=== PATIENT | male | born 1945 | race Caucasian/White ===

== ENCOUNTER 2018-05-22 02:45 | Inpatient (IN) | payer OTHER ==
[~2018-05-22] VITALS: Ht 182.9 cm; Wt 75.3 kg
[2018-05-22 04:24] LABS: BASOPHILS ABSOLUTE AUTO 0.03 K/mm3 (0.00-0.23); BASOPHILS PERCENT AUTO 0 % (0-2); EOSINOPHILS ABSOLUTE AUTO 0.09 K/mm3 (0.00-0.68); EOSINOPHILS PERCENT AUTO 1 % (0-6); Hemoglobin 15.1 g/dL (13.5-17.5); IMMATURE GRAN ABSOLUTE AUTO 0.04 K/mm3 (0.00-0.10); IMMATURE GRAN PERCENT AUTO 0 % (0-1); LYMPHOCYTES PERCENT AUTO 20 % (21-46); MONOCYTES ABSOLUTE AUTO 0.71 K/mm3 (0.16-1.47); MONOCYTES PERCENT AUTO 8 % (4-13); Mean Corpuscular HGB 28.5 pg (26.0-34.0); Mean Corpuscular HGB Conc 32.1 g/dL (31.5-36.5); Mean Corpuscular Volume 89 fL (80-100); Mean Platelet Volume 11.6 fL (9.1-12.4); NEUTROPHILS PERCENT AUTO 70 % (41-73); Platelet Count 182 K/mm3 (150-400); RDW Standard Deviation 48.9 fL (35.1-46.3); White Blood Cell Count 9.37 K/mm3 (4.00-11.30)
[2018-05-22 05:08] LABS: Alanine Aminotransfer (ALT/SGP 49 U/L (12-78); Albumin, Blood 3.5 g/dL (3.4-5.0); Albumin/Globulin Ratio 0.9 (0.8-1.8); Alk Phos 68 U/L (50-136); Anion Gap 10 mmol/L (6-16); Aspartate Aminotrans (AST/SGOT 34 U/L (12-37); Blood Urea Nitrogen 26 mg/dL (8-24); Bun/Creatinine Ratio 26.2 (12.0-20.0); CO2, Blood 22 mmol/L (21-32); Chloride, Blood 110 mmol/L (98-108); Creatinine, Blood 0.99 mg/dL (0.60-1.20); Globulin, Blood 3.7 g/dL (2.2-4.0); Glomerular Filtration Rate >60 (60-); Glucose, Blood 105 mg/dL (70-99); Sodium, Blood 142 mmol/L (136-145); Total Protein, Blood 7.2 g/dL (6.4-8.2); Troponin I 0.049 ng/mL (0.000-0.040)
[2018-05-22 09:59] LABS: International Normalized Ratio 1.13; Prothrombin Time Results 11.6 Sec (9.7-11.5)
[2018-05-22 10:04] LABS: Troponin I 0.052 ng/mL (0.000-0.040)
[2018-05-22 10:06] LABS: Thyroid Stimulating Hormone 3.02 uIU/mL (0.360-4.800)
[2018-05-22] MEDS ORDERED: Omega 3 1,0001 EACH PO (10:16)
[2018-05-22] MEDS ORDERED: L-Lysine500 M1 PO (10:18)
[2018-05-22] MEDS ORDERED: ASCO500 PO (10:19)
[2018-05-22] MEDS ORDERED: MULTI VITAMIN1 EACH PO (10:22)
[2018-05-22 19:24] LABS: Magnesium, Blood 2.2 mg/dL (1.6-2.4)
[2018-05-22 19:25] LABS: Potassium, Blood 4.5 mmol/L (3.5-5.5)
[2018-05-23 05:30] LABS: Anion Gap 9 mmol/L (6-16); Blood Urea Nitrogen 27 mg/dL (8-24); Bun/Creatinine Ratio 23.9 (12.0-20.0); CO2, Blood 27 mmol/L (21-32); Calcium, Blood 8.4 mg/dL (8.5-10.1); Chloride, Blood 106 mmol/L (98-108); Creatinine, Blood 1.13 mg/dL (0.60-1.20); Glomerular Filtration Rate >60 (60-); Glucose, Blood 92 mg/dL (70-99); Magnesium, Blood 2.4 mg/dL (1.6-2.4); Potassium, Blood 3.8 mmol/L (3.5-5.5); Sodium, Blood 142 mmol/L (136-145)
== END 2018-05-23 17:20 | disposition short-term general hospital (02) | DRG 286 ==
LOC: ER 02:45 → ICUE 02:50 → ICUW 02:50 → ICUE 02:50 → ER 06:36 → ICUW 06:36 → ICUE 08:14 → ICUW 08:14 → ICUE 08:50
PROVIDERS: Emergency Medicine; Internal Medicine Cardiovascular Disease; Internal Medicine Endocrinology, Diabetes & Metabolism
PROC: B24BZZ4 Ultrasonography of Heart with Aorta, Transesophageal (ICD-10-PCS; 2018-05-22)
PROC: B2111ZZ Fluoroscopy of Multiple Coronary Arteries using Low Osmolar Contrast (ICD-10-PCS; principal; 2018-05-23)
PROC: 4A023N7 Measurement of Cardiac Sampling and Pressure, Left Heart, Percutaneous Approach (ICD-10-PCS; 2018-05-23)
DX: I25.10 Atherosclerotic heart disease of native coronary artery without angina pectoris (principal); I50.41 Acute combined systolic (congestive) and diastolic (congestive) heart failure; I48.91 Unspecified atrial fibrillation; N40.0 Benign prostatic hyperplasia without lower urinary tract symptoms; E78.00 Pure hypercholesterolemia, unspecified; I25.5 Ischemic cardiomyopathy; I35.0 Nonrheumatic aortic (valve) stenosis; I95.9 Hypotension, unspecified; I51.3 Intracardiac thrombosis, not elsewhere classified; Z96.642 Presence of left artificial hip joint
CPT/HCPCS: 36415; 51702; 71046; 80048; 80053; 83036; 83735; 83880; 84132; 84443; 84484; 85025; 85610; 85730; 86850; 86900; 86901; 93005; 93010; 93306; 93312; 93325; 93458; 96374; 96375; 96376; 99152; 99153; 99285-25; C1769; C1894; C9113; G0378; J0461; J1160; J1644; J1940; J2250; J3010; J7030; Q9967

== ENCOUNTER 2018-12-27 19:31 | Emergency (ER) | payer OTHER ==
[~2018-12-27] VITALS: Ht 182.9 cm; Wt 73.5 kg
[~2018-12-27 19:31] MED LIST: ASCO500 PO; ATOR40TA PO; Amiodarone HCl200 MG PO; ELIQUIS5 MG PO; L-Lysine500 M1 PO; LISI5 PO; MULTI VITAMIN1 EACH PO; Omega 3 1,0001 EACH PO
[2018-12-27] MEDS ORDERED: ASPI81CH PO (19:56)
[2018-12-27] MEDS ORDERED: METO25 PO (19:56)
[2018-12-27] MEDS ORDERED: PANT40 PO (19:56)
[2018-12-27 20:10] LABS: BASOPHILS ABSOLUTE AUTO 0.03 K/mm3 (0.00-0.23); BASOPHILS PERCENT AUTO 0 % (0-2); EOSINOPHILS ABSOLUTE AUTO 0.13 K/mm3 (0.00-0.68); EOSINOPHILS PERCENT AUTO 2 % (0-6); Hematocrit 38.6 % (37.0-53.0); Hemoglobin 12.2 g/dL (13.5-17.5); IMMATURE GRAN ABSOLUTE AUTO 0.02 K/mm3 (0.00-0.10); IMMATURE GRAN PERCENT AUTO 0 % (0-1); LYMPHOCYTES ABSOLUTE AUTO 2.37 K/mm3 (0.84-5.20); LYMPHOCYTES PERCENT AUTO 27 % (21-46); MONOCYTES ABSOLUTE AUTO 0.73 K/mm3 (0.16-1.47); MONOCYTES PERCENT AUTO 8 % (4-13); Mean Corpuscular HGB 29.1 pg (26.0-34.0); Mean Corpuscular HGB Conc 31.6 g/dL (31.5-36.5); Mean Corpuscular Volume 92 fL (80-100); Mean Platelet Volume 11.2 fL (9.1-12.4); NEUTROPHILS ABSOLUTE AUTO 5.44 K/mm3 (1.96-9.15); NEUTROPHILS PERCENT AUTO 62 % (41-73); Platelet Count 189 K/mm3 (150-400); RDW Coefficient Variation 14.2 % (11.7-14.2); RDW Standard Deviation 48.1 fL (35.1-46.3); Red Blood Cell Count 4.19 M/mm3 (4.30-5.90); White Blood Cell Count 8.72 K/mm3 (4.00-11.30)
[2018-12-27 20:26] LABS: Alanine Aminotransfer (ALT/SGP 38 U/L (12-78); Albumin, Blood 3.5 g/dL (3.4-5.0); Alk Phos 67 U/L (50-136); Anion Gap 6 mmol/L (6-16); Aspartate Aminotrans (AST/SGOT 29 U/L (12-37); Bilirubin, Total 0.5 mg/dL (0.1-1.0); Blood Urea Nitrogen 25 mg/dL (8-24); Bun/Creatinine Ratio 27.7 (12.0-20.0); CO2, Blood 27 mmol/L (21-32); Chloride, Blood 106 mmol/L (98-108); Globulin, Blood 3.5 g/dL (2.2-4.0); Glomerular Filtration Rate >60 (60-); Glucose, Blood 99 mg/dL (70-99); Sodium, Blood 139 mmol/L (136-145); Troponin I <0.015 ng/mL (0.000-0.040)
== END 2018-12-27 21:45 | disposition home or self-care (01) ==
LOC: ER 19:31
PROVIDERS: Emergency Medicine
DX: I25.10 Atherosclerotic heart disease of native coronary artery without angina pectoris (principal); R42 Dizziness and giddiness; E86.0 Dehydration; Z95.1 Presence of aortocoronary bypass graft; Z88.0 Allergy status to penicillin
CPT/HCPCS: 71046; 80053; 83880; 84484; 85025; 93005; 93010; J2405; J7030

== ENCOUNTER 2019-03-30 20:00 | Emergency (ER) | payer OTHER ==
[~2019-03-30] VITALS: Ht 182.9 cm; Wt 73.9 kg
[~2019-03-30 20:00] MED LIST changes: +ASPI81CH PO; +METO25 PO; +PANT40 PO
== END 2019-03-30 21:44 | disposition home or self-care (01) ==
LOC: ER 20:00
DX: T80.89XA Other complications following infusion, transfusion and therapeutic injection, initial encounter (principal); Z79.899 Other long term (current) drug therapy; Z79.82 Long term (current) use of aspirin
CPT/HCPCS: 99283-25

== ENCOUNTER → 2019-04-05 | Outpatient (CLI) | payer OTHER | END | disposition home or self-care (01) | LOC: PLD 10:55 → LAB SHORT 10:55 | DX: C44.612 Basal cell carcinoma of skin of right upper limb, including shoulder (principal); L98.499 Non-pressure chronic ulcer of skin of other sites with unspecified severity | CPT/HCPCS: 88305 ==

== ENCOUNTER → 2019-10-12 | Outpatient (CLI) | payer OTHER ==
[~2019-10-12] MED LIST changes: +Bactrim Ds Tab1 EACH PO; +CEPH500 PO
== END | disposition home or self-care (01) ==
LOC: PLD 11:08 → LAB SHORT 11:08
DX: D04.4 Carcinoma in situ of skin of scalp and neck (principal)
CPT/HCPCS: 88305

== ENCOUNTER 2019-11-06 07:24 | Emergency (ER) | payer OTHER ==
[~2019-11-06] VITALS: Ht 182.9 cm; Wt 70.3 kg
[~2019-11-06 07:24] MED LIST changes: -Bactrim Ds Tab1 EACH PO; -CEPH500 PO
== END 2019-11-06 08:18 | disposition home or self-care (01) ==
LOC: ER 07:24
DX: S01.81XA Laceration without foreign body of other part of head, initial encounter (principal); E78.5 Hyperlipidemia, unspecified; I25.10 Atherosclerotic heart disease of native coronary artery without angina pectoris; Z88.0 Allergy status to penicillin; Z79.899 Other long term (current) drug therapy; Z79.01 Long term (current) use of anticoagulants; Z79.82 Long term (current) use of aspirin; W18.30XA Fall on same level, unspecified, initial encounter
CPT/HCPCS: 12011; 99282-25

== ENCOUNTER 2019-11-10 08:04 | Emergency (ER) | payer OTHER ==
[~2019-11-10] VITALS: Ht 182.9 cm; Wt 79.4 kg
[2019-11-10] MEDS ORDERED: CEPH500 PO (08:43)
[2019-11-10] MEDS ORDERED: Bactrim Ds Tab1 EACH PO (08:43)
== END 2019-11-10 09:18 | disposition home or self-care (01) ==
LOC: ER 08:04
DX: L03.211 Cellulitis of face (principal); L02.01 Cutaneous abscess of face; Z88.0 Allergy status to penicillin; Z79.899 Other long term (current) drug therapy; Z79.82 Long term (current) use of aspirin; E78.5 Hyperlipidemia, unspecified; I25.10 Atherosclerotic heart disease of native coronary artery without angina pectoris
CPT/HCPCS: 99282

== ENCOUNTER 2019-11-13 07:10 | Emergency (ER) | payer OTHER ==
[~2019-11-13] VITALS: Ht 182.9 cm; Wt 83.0 kg
[~2019-11-13 07:10] MED LIST changes: +Bactrim Ds Tab1 EACH PO; +CEPH500 PO
== END 2019-11-13 07:50 | disposition home or self-care (01) ==
LOC: ER 07:10
DX: L03.211 Cellulitis of face (principal); I10 Essential (primary) hypertension; I25.10 Atherosclerotic heart disease of native coronary artery without angina pectoris; Z88.0 Allergy status to penicillin; Z79.899 Other long term (current) drug therapy; Z79.01 Long term (current) use of anticoagulants; Z79.82 Long term (current) use of aspirin
CPT/HCPCS: 99282